=== PATIENT | female | born 1940 | race Caucasian/White ===

== ENCOUNTER 2020-09-25 06:18 | Day surgery (SDC) | payer MEDICARE ==
[~2020-09-25] VITALS: Ht 170.2 cm; Wt 79.8 kg
[~2020-09-25 06:18] MED LIST: AMLO5; Aspirin EC81 MG; CEPH500 PO; CYCL10 PO; EPIN.3I; FLUT44OIA; Naprosyn500 MG PO; Norco 5-325 Ta1 EACH PO; PRAVASTATIN SOD10 MG PO; RALO60; RALO60 PO; Sudafed 12 Hou120 MG
--- NOTE | 2020-09-25 06:46 | NUR ---
09/25/20 0646 Rosa Bowens CALL LIGHT WITHIN REACH. AT 0630 THIS AM, PLEDGETT PLACED AND ONE TETRACAINE DROP ON THE LEFT EYE. PT TOLERATED PROCEDURE WELL. WILL CONTINUE TO MONITOR. PT REFUSES TO HAVE PILLOW PLACED BEHIND HER KNEES WHILE LYING DOWN FLAT ON BED PRE-OP.
== END 2020-09-25 08:21 | disposition home or self-care (01) ==
LOC: ORSCSDS 06:18
PROVIDERS: Ophthalmology
PROC: 08RK3JZ Replacement of Left Lens with Synthetic Substitute, Percutaneous Approach (ICD-10-PCS; principal; 2020-09-25 07:30)
DX: H25.12 Age-related nuclear cataract, left eye (principal); I10 Essential (primary) hypertension; Z79.899 Other long term (current) drug therapy
CPT/HCPCS: J2001; J2250; J3010; J7040; V2632